=== PATIENT | female | born 1985 | race African-American/Black ===

== ENCOUNTER 2019-01-30 07:15 | Emergency (ER) | payer SELFPAY ==
[~2019-01-30] VITALS: Ht 162.6 cm; Wt 59.0 kg
[2019-01-30] MEDS ORDERED: IBUPROFEN 600 MG TAB PO STA (07:48)
== END 2019-01-30 08:10 | disposition home or self-care (01) ==
LOC: FSED 07:15
DX: R10.30 Lower abdominal pain, unspecified (principal); N80.0 Endometriosis of uterus
CPT/HCPCS: 99282